=== PATIENT | female | born 1970 | race Caucasian/White ===

== ENCOUNTER 2017-01-31 21:37 | Emergency (ER) | payer OTHER ==
[2017-01-31] MEDS ORDERED: Diazepam TAB(*) 5 MG PO ONE ×2 (22:11→23:42)
[2017-01-31] MEDS ORDERED: Ketorolac INJ* 60 MG/2 ML VIAL IM ONE (22:11)
[2017-01-31] MEDS ORDERED: Ibuprofen TAB* 600 MG PO ONE (23:43)
[2017-01-31 23:57] VITALS: BP 113/72
--- NOTE | 2017-02-01 03:02 | ED ---
I, Oh,Soohefrain, scribed for Chadwick Zuniga MD on 01/31/17 at 2210 . Back Pain - HPI Summary HPI Summary: This 46 y/o female presents to ED for acute on chronic low back pain after moving laundry washer at 1300 PM. Pain radiates down to LLE leg. Weight bearing make the pain worse. APAP was taken at 1300 PM without much relief. Negative fever, chills, or neck pain. Positive nausea with pain. PMHx includes known sciatica. Negative hx of surgery. Pt reports that pt did get itchy with oxycodone and hydrocodone. Pt is currently on fluoxetine. - History of Current Complaint Chief Complaint: EDBackInjuryPain Stated Complaint: LOWER BACK PAIN Time Seen by Provider: 01/31/17 21:52 Hx Obtained From: Patient, Medical Records Onset/Duration: Sudden Onset, Still Present Onset/Duration: Started Hours Ago, Traumatic, Still Present Timing: Constant Back Pain Location: Is Discrete @ - low back pain, Radiates To - radiating down LLE Pain Intensity: 10 Pain Scale Used: 0-10 Numeric Character: Spasmodic Aggravating Symptom(s): Walking Alleviating Symptom(s): Rest Associated Signs And Symptoms: Positive: Pain with Weight Bearing - Allergies/Home Medications Allergies/Adverse Reactions: Allergies Allergy/AdvReac Type Severity Reaction Status Date / Time Bacitracin Allergy Intermediate Rash Verified 09/26/15 16:09 VAGINAL CREAM Allergy Severe Itching Uncoded 09/26/15 16:09 PMH/Surg Hx/FS Hx/Imm Hx Endocrine/Hematology History: Denies: Hx Diabetes, Hx Thyroid Disease Cardiovascular History: Denies: Hx Hypertension Respiratory History: Denies: Hx Asthma, Hx Chronic Obstructive Pulmonary Disease (COPD) GI History: Denies: Hx Ulcer History: Reports: Hx Kidney Infection Musculoskeletal History: Reports: Other Musculoskeletal History - sciatica Neurological History: Reports: Hx Migraine Psychiatric History: Reports: Hx Anxiety, Hx Depression - Surgical History Surgery Procedure, Year, and Place: hysterectomy. colposcopy - Immunization History Date of Tetanus Vaccine: Unk Date of Influenza Vaccine: None Infectious Disease History: Denies: Hx Hepatitis, Hx Human Immunodeficiency Virus (HIV), History Other Infectious Disease, Traveled Outside the [place] in Last 30 Days - Family History Known Family History: Positive: Hypertension - Social History Alcohol Use: None Substance Use Type: Reports: None Hx Tobacco Use: Yes Smoking Status (MU): Current Every Day Smoker Type: Cigarettes Amount Used/How Often: 1/2 PPD Length of Time of Smoking/Using Tobacco: 22 years Have You Smoked in the Last Year: Yes Review of Systems Negative: Fever Positive: Other - low back pain radiating down to LLE Neurological: Other - Negative neck pain All Other Systems Reviewed And Are Negative: Yes Physical Exam - Summary Physical Exam Summary: The patient is well-nourished in moderate distress. The skin is warm and dry and skin color reflects adequate perfusion. HEENT: The head is normocephalic and atraumatic. The pupils are equal and reactive. The conjunctivae are clear and without drainage. Nares are patent and without drainage. Mouth reveals moist mucous membranes and the throat is without erythema and exudate. The external ears are intact. The ear canals are patent and without drainage. The tympanic membranes are intact. Neck is supple with full range of motion and non-tender. There are no carotid bruits. There is no neck vein distension. Respiratory: Chest is non-tender. Lungs are clear to auscultation and breath sounds are symmetrical and equal. Cardiovascular: Hear is regular rate and rhythm. There is no murmur or rub auscultated. There is no peripheral edema and pulses are symmetrical and equal. Abdomen: The abdomen is soft and non-tender. There are normal bowel sounds heard in all four quadrants and there is no organomegaly palpated. Musculoskeletal: There is no back pain noted. Extremities are non-tender with full range of motion. There is good capillary refill. There is no peripheral edema or calf tenderness elicited. Muscle spasm at paravertebral region, going into her buttocks. Neurological: Patient is alert and oriented to person, place and time. The patient has symmetrical motor strength in BLE. Cranial nerves are grossly intact. Deep tendon reflexes are symmetrical and equal in all four extremities. Intact DTR at bilat patella. Psychiatric: The patient has an appropriate affect and does not exhibit any anxiety or depression. Triage Information Reviewed: Yes Vital Signs On Initial Exam: Initial Vitals Temp Pulse Resp BP Pulse Ox 98 F 91 20 116/68 98 01/31/17 21:44 01/31/17 21:44 01/31/17 21:44 01/31/17 21:44 01/31/17 21:44 Vital Signs Reviewed: Yes Diagnostics - Vital Signs Vital Signs Temp Pulse Resp BP Pulse Ox 01/31/17 21:44 98 F 91 20 116/68 98 - Laboratory Lab Statement: Any lab studies that have been ordered have been reviewed, and results considered in the medical decision making process. Back Pain Course/Dx - Course Assessment/Plan: This 46 y/o female presents to ED for acute on chronic back pain that occurred immediately after moving a laundry washer this afternoon. PMHx is significant for known sciatica and chronic back pain. Pt's allergic reaction to oxycodone and hydrocodone were reviewed with pt, and she was given toradol and diazepam to symptomatically treat her back pain. Pain improved with med, and she is discharged with work note and recommendation for outpatient f/u. - Diagnoses Differential Diagnosis/HQI/PQRI: Positive: Herniated Disc, Strain, Sprain, Other - sciatica, Provider Diagnoses: Back pain due to injury Discharge - Discharge Plan Condition: Stable Disposition: HOME Prescriptions: Diazepam TAB(*) [Valium TAB(*)] 5 mg PO Q6H PRN #20 tab MDD 4 PRN Reason: pain Ibuprofen TAB* [Motrin TAB* 600 MG] 600 mg PO Q6H PRN #30 tab PRN Reason: pain Patient Education Materials: Ibuprofen (By mouth), Diazepam (By mouth), Back Pain (ED) Forms: *Work Release Referrals: Micky El MD [Primary Care Provider] - 2 Days Additional Instructions: Please consider MRI and physical therapy if your back pain persists. The documentation as recorded by the Kaushik sanchez Soohyun accurately reflects the service I personally performed and the decisions made by , Chadwick Zuniga MD.
== END 2017-01-31 23:56 | disposition home or self-care (01) ==
LOC: ED 21:37
DX: M54.5 Low back pain (principal); Z87.828 Personal history of other (healed) physical injury and trauma
CPT/HCPCS: 96372; 99282; A9270-GY; J1885

== ENCOUNTER → 2017-02-01 13:32 | Emergency (ER) | payer OTHER ==
[~2017-02-01 13:32] MED LIST: Diazepam TAB(*) 5 MG PO ONE; traMADol TAB* 50 MG PO ONE
[2017-02-01 13:43] VITALS: BP 120/90
--- NOTE | 2017-02-01 14:42 | RAD ---
Indication: Left lower extremity pain. CT of the lumbar spine was obtained in the axial plane. Sagittal and coronal reconstructed images were obtained. At L5-S1 there is disc space narrowing. Minimal broad-based protrusion is noted. No central or foraminal stenosis is noted. At L1-L2, L2-L3, L3-L4 and L4-L5 no disc protrusion is noted. No fractures identified. IMPRESSION: Degenerative disc disease at L5-S1. No fracture of the lumbar spine is noted.
--- NOTE | 2017-02-01 16:11 | ED ---
Back Pain - HPI Summary HPI Summary: Patient presents with left sided back pain that began after pushing a heavy appliance yesterday. She has a history of back pain and didn't think it would hurt. Today though she has extreme pain that radiates down to the outside of her left foot. She saw her PCP who referred her to the ED for an MRI due to her pain. The patient is able to walk with pain, denies incontinence of urine or stool. She has tingling on the outside of the left foot without weakness. - History of Current Complaint Chief Complaint: EDBackInjuryPain Stated Complaint: BACK PAIN Time Seen by Provider: 02/01/17 13:57 Hx Obtained From: Patient, Family/8Th Grade Teacher Onset/Duration: Gradual Onset Onset/Duration: Atraumatic Timing: Constant Severity Initially: Moderate Severity Currently: Severe Pain Intensity: 6 Character: Sharp, Spasmodic, Stiffness Aggravating Symptom(s): Movement, Bending Alleviating Symptom(s): Nothing Associated Signs And Symptoms: Positive: Pain with Weight Bearing Related History: Previous Back Injury - Allergies/Home Medications Allergies/Adverse Reactions: Allergies Allergy/AdvReac Type Severity Reaction Status Date / Time Bacitracin Allergy Intermediate Rash Verified 09/26/15 16:09 VAGINAL CREAM Allergy Severe Itching Uncoded 09/26/15 16:09 PMH/Surg Hx/FS Hx/Imm Hx Endocrine/Hematology History: Denies: Hx Diabetes, Hx Thyroid Disease Cardiovascular History: Denies: Hx Hypertension Respiratory History: Denies: Hx Asthma, Hx Chronic Obstructive Pulmonary Disease (COPD) GI History: Denies: Hx Ulcer History: Reports: Hx Kidney Infection Musculoskeletal History: Reports: Hx Back Problems, Other Musculoskeletal History - sciatica Neurological History: Reports: Hx Migraine Psychiatric History: Reports: Hx Anxiety, Hx Depression - Surgical History Surgery Procedure, Year, and Place: hysterectomy. colposcopy - Immunization History Date of Tetanus Vaccine: Unk Date of Influenza Vaccine: None Infectious Disease History: No Infectious Disease History: Denies: Hx Hepatitis, Hx Human Immunodeficiency Virus (HIV), History Other Infectious Disease, Traveled Outside the [place] in Last 30 Days - Family History Known Family History: Positive: Hypertension - Social History Occupation: Employed Full-time Lives: With Family Alcohol Use: None Substance Use Type: Reports: None Hx Tobacco Use: Yes Smoking Status (MU): Current Every Day Smoker Type: Cigarettes Amount Used/How Often: 1/2 PPD Length of Time of Smoking/Using Tobacco: 22 years Have You Smoked in the Last Year: Yes Cessation Counseling: Patient Advised to Stop Review of Systems Positive: Myalgia Negative: Weakness, Paresthesia, Numbness All Other Systems Reviewed And Are Negative: Yes Physical Exam Triage Information Reviewed: Yes Vital Signs On Initial Exam: Initial Vitals Temp Pulse Resp BP Pulse Ox 98.3 F 94 20 120/90 99 02/01/17 13:40 02/01/17 13:40 02/01/17 13:40 02/01/17 13:40 02/01/17 13:40 Vital Signs Reviewed: Yes Appearance: Positive: Well-Appearing, Well-Nourished, Pain Distress Skin: Positive: Warm, Skin Color Reflects Adequate Perfusion, Dry, Soft Head/Face: Positive: Normal Head/Face Inspection Eyes: Positive: EOMI, [place], Conjunctiva Clear ENT: Positive: Hearing grossly normal Neck: Positive: Supple, Nontender Respiratory/Lung Sounds: Positive: Clear to Auscultation, Breath Sounds Present Cardiovascular: Positive: RRR Abdomen Description: Positive: Nontender, Soft Bowel Sounds: Positive: Present Musculoskeletal: Negative: Edema Left, Edema Right Neurological: Positive: Sensory/Motor Intact, Alert, Oriented to Person Place, Time, NV Bundle Intact Distally, Normal Gait Psychiatric: Positive: Affect/Mood Appropriate AVPU Assessment: Alert Diagnostics - Vital Signs Vital Signs Temp Pulse Resp BP Pulse Ox 02/01/17 14:06 19 02/01/17 13:43 97.1 F 91 20 120/90 100 02/01/17 13:40 98.3 F 94 20 120/90 99 - Laboratory Lab Statement: Any lab studies that have been ordered have been reviewed, and results considered in the medical decision making process. - CT No standard instances CT Interpretation: No Acute Changes CT Interpretation Completed By: Radiologist - Ultrasound No standard instances Ultrasound Interpretation: No Acute Changes Ultrasound Interpretation Completed By: Radiologist Re-Evaluation - Re-Evaluation First Eval Re-Evaluation Time: 17:00 Change: Improved - pain improved greatly but still mildly presents Back Pain Course/Dx - Diagnoses Differential Diagnosis/HQI/PQRI: Positive: Aneurysm, Arthritis, Cauda Equina Syndrome, Compressive Cord Syndrome, Herniated Disc, Strain, Sprain Provider Diagnoses: Back pain Discharge - Discharge Plan Condition: Stable Disposition: HOME Prescriptions: Hydrocodone-Acetaminophen [Delphia 5-325 mg] 1 tab PO QID PRN #12 tab MDD 4 PRN Reason: Pain Patient Education Materials: Back Pain (ED) Forms: *Work Release Referrals: Micky El MD [Primary Care Provider] - Additional Instructions: Please use the medication prescribed by Dr. Zuniga. Follow-up with your primary care provider if symptoms do not improve in the next 3-5 days. Rest your back and apply heat or ice as needed. Return to the emergency department if symptoms worsen.
--- NOTE | 2017-02-01 17:49 | RAD ---
HISTORY: Left groin pain COMPARISONS: None relevant TECHNIQUE: Multiple transverse and longitudinal ultrasound images were obtained of the left lower extremity from the level of the common femoral vein inferiorly through to the infrapopliteal veins using grayscale, color Doppler, and spectral Doppler imaging with and without compression and with augmentation. Comparison images were obtained of the contralateral common femoral vein. FINDINGS: VEINS: The venous system of the left lower extremity is compressible throughout its course, with normal flow on color Doppler imaging and normal response to augmentation on spectral Doppler imaging. SOFT TISSUES: Unremarkable. OTHER FINDINGS: There is a small complex cyst of the popliteal fossa consistent with a Slaughter's cyst measuring 1.9 x 0.8 x 1.2 cm. IMPRESSION: NO LEFT LOWER EXTREMITY DEEP VEIN THROMBOSIS SLAUGHTER'S CYST
== END | disposition home or self-care (01) ==
LOC: ED 13:32
DX: M54.9 Dorsalgia, unspecified (principal); R10.32 Left lower quadrant pain; M71.22 Synovial cyst of popliteal space [Baker], left knee; M51.37 Other intervertebral disc degeneration, lumbosacral region; G43.909 Migraine, unspecified, not intractable, without status migrainosus; F41.9 Anxiety disorder, unspecified; F32.9 Major depressive disorder, single episode, unspecified; Z90.710 Acquired absence of both cervix and uterus; F17.210 Nicotine dependence, cigarettes, uncomplicated
CPT/HCPCS: 72131; 99282; A9270-GY

== ENCOUNTER 2017-03-26 13:57 | Emergency (ER) | payer SELFPAY ==
--- NOTE | 2017-03-26 15:41 | RAD ---
Indication: Right foot injury after fall. 3 views of the right foot demonstrates nondisplaced fracture through the proximal second, third and fourth metatarsals. IMPRESSION: Fractures which are nondisplaced through the proximal second, third and fourth metatarsals.
--- NOTE | 2017-03-26 15:51 | UC ---
Lower Extremity/Ankle HPI - HPI Summary HPI Summary: TWISTED RIGHT ANKLE AND FOOT TODAY AT WORK WHEN SHE STOOD UP AND THEN TRIPPED OVER A BOX. PAIN AND BRUISING MOSTLY IN RIGHT FOREFOOT. UNABLE TO BEAR WEIGHT. NO PREVIOUS RIGHT FOOT/ANKLE INJURY. - History of Current Complaint Chief Complaint: UCLowerExtremity Stated Complaint: FOOT INJURY Time Seen by Provider: 03/26/17 15:13 Hx Obtained From: Patient, Family/Disk Sharpener - MOM Onset/Duration: Sudden Onset, Lasting Hours, Still Present Severity Initially: Moderate Severity Currently: Moderate Pain Intensity: 8 Pain Scale Used: 0-10 Numeric Aggravating Factor(s): Standing, Ambulation Alleviating Factor(s): Rest Able to Bear Weight: No - Allergies/Home Medications Allergies/Adverse Reactions: Allergies Allergy/AdvReac Type Severity Reaction Status Date / Time Bacitracin Allergy Intermediate Rash Verified 09/26/15 16:09 VAGINAL CREAM Allergy Severe Itching Uncoded 09/26/15 16:09 PMH/Surg Hx/FS Hx/Imm Hx Previously Healthy: Yes - Surgical History Surgical History: Yes Surgery Procedure, Year, and Place: hysterectomy. colposcopy - Family History Known Family History: Positive: Hypertension - Social History Alcohol Use: None Substance Use Type: None Smoking Status (MU): Current Every Day Smoker Type: Cigarettes Amount Used/How Often: 1/2 PPD Length of Time of Smoking/Using Tobacco: 22 years Have You Smoked in the Last Year: Yes - Immunization History Most Recent Influenza Vaccination: unknown Most Recent Tetanus Shot: within 5 years Most Recent Pneumonia Vaccination: never Review of Systems Constitutional: Negative Skin: Bruising Respiratory: Negative Cardiovascular: Negative Gastrointestinal: Negative Musculoskeletal: Arthralgia, Decreased ROM, Edema All Other Systems Reviewed And Are Negative: Yes Physical Exam Triage Information Reviewed: Yes Appearance: Well-Appearing, No Pain Distress, Well-Nourished Vital Signs: Initial Vital Signs Temp 98 F 03/26/17 14:05 Pulse 88 03/26/17 14:05 Resp 22 03/26/17 14:05 BP 144/84 03/26/17 14:05 Pulse Ox 100 03/26/17 14:05 Vital Signs Reviewed: Yes Eyes: Positive: Conjunctiva Clear ENT: Positive: Hearing grossly normal Neck: Positive: Supple Respiratory: Positive: No respiratory distress, No accessory muscle use Cardiovascular: Positive: Pulses Normal Abdomen Description: Positive: Soft Musculoskeletal: Positive: ROM Limited @ - RIGHT FOOT/ANKLE, Edema @ - SLIGHT EDEMA RIGHT FOOT, Other: - TTO RIGHT FOREFOOT OVER 2ND, 3RD, 4TH METATARSALS Neurological: Positive: Alert Psychological: Positive: Age Appropriate Behavior Skin: Positive: Other - BRUISING RIGHT FOREFOOT Diagnostics - Radiology RIGHT FOOT XRAY Xray Interpretation: Positive (See Comments) - Fractures which are nondisplaced through the proximal second, third and fourth metatarsals Radiology Interpretation Completed By: Radiologist Lower Extremity Course/Dx - Differential Dx/Diagnosis Provider Diagnoses: Non-displaced fractures through the proximal second, third and fourth. metatarsals - right foot. Discharge - Discharge Plan Condition: Stable Disposition: HOME Prescriptions: Acetaminop/Codeine 30 MG TAB* [Tylenol/Codeine 30 MG TAB*] 1 - 2 tab PO Q6H PRN #20 tab MDD 8 PRN Reason: Pain Patient Education Materials: Foot Fracture in Adults (ED) Forms: *Work Release Referrals: Micky El MD [Primary Care Provider] - If Needed Jhon Webster MD [Medical Doctor] - 3 Days Additional Instructions: YOU HAVE NON DISPLACED FRACTURES THROUGH THE 2ND, 3RD AND 4TH METATARSALS OF YOUR RIGHT FOOT. WEAR THE CAMBOOT AT ALL TIMES UNTIL SEEN BY ORTHO. NO WEIGHT BEARING. OKAY TO REMOVE TO BATHE. FOLLOW-UP WITH ORTHO NEXT WEEK. KEEP ELEVATED ABLE.
[2017-03-26 16:06] VITALS: BP 156/99
== END 2017-03-26 16:31 | disposition home or self-care (01) ==
LOC: UCEAST 13:57
DX: S92.324A Nondisplaced fracture of second metatarsal bone, right foot, initial encounter for closed fracture (principal); S92.334A Nondisplaced fracture of third metatarsal bone, right foot, initial encounter for closed fracture; S92.344A Nondisplaced fracture of fourth metatarsal bone, right foot, initial encounter for closed fracture; W01.0XXA Fall on same level from slipping, tripping and stumbling without subsequent striking against object, initial encounter; Y93.89 Activity, other specified; Y92.89 Other specified places as the place of occurrence of the external cause; Y99.0 Civilian activity done for income or pay; F17.210 Nicotine dependence, cigarettes, uncomplicated
CPT/HCPCS: 99211; G0463

== ENCOUNTER 2017-04-30 10:51 | Emergency (ER) | payer OTHER ==
[2017-04-30 11:01] VITALS: BP 121/92
--- NOTE | 2017-04-30 11:39 | UC ---
Abdominal Pain Female HPI - HPI Summary HPI Summary: has been feeling badly for one week nausea vomiting back pain and urinary incot. has bed subjectively febrile, - History of Current Complaint Chief Complaint: UCGeneralIllness Stated Complaint: FEVER HEADACHE Time Seen by Provider: 04/30/17 11:15 Hx Obtained From: Patient ?: No Onset/Duration: Gradual Onset, Lasting Weeks - 1 Timing: Constant Severity Initially: Mild Severity Currently: Moderate Pain Intensity: 9 Pain Scale Used: 0-10 Numeric Location: Other - lower back Radiates: No Character: Aching, Dull Aggravating Factor(s): Food Alleviating Factor(s): Nothing Associated Signs and Symptoms: Positive: Diaphoresis, Fever - subjective, Back Pain, Urinary Symptoms, Decreased Appetite, Nausea, Vomiting Allergies/Adverse Reactions: Allergies Allergy/AdvReac Type Severity Reaction Status Date / Time Bacitracin Allergy Intermediate Rash Verified 04/30/17 10:55 VAGINAL CREAM Allergy Severe Itching Uncoded 04/30/17 10:55 PMH/Surg Hx/FS Hx/Imm Hx Previously Healthy: No GI/ History: Other Other GI/ History: neurogentic blader Psychological History: Depression - Surgical History Surgical History: Yes Surgery Procedure, Year, and Place: hysterectomy. colposcopy - Family History Known Family History: Positive: Hypertension - Social History Occupation: Employed Full-time Lives: With Family Alcohol Use: None Substance Use Type: None Smoking Status (MU): Heavy Every Day Tobacco Smoker Type: Cigarettes Amount Used/How Often: 1/2 PPD Length of Time of Smoking/Using Tobacco: 22 years Have You Smoked in the Last Year: Yes Cessation Counseling: Counseled 3+Min - 10 Min - Immunization History Most Recent Influenza Vaccination: unknown Most Recent Tetanus Shot: within 5 years Most Recent Pneumonia Vaccination: never Review of Systems Constitutional: Negative Skin: Negative Eyes: Negative ENT: Negative Respiratory: Negative Cardiovascular: Negative Gastrointestinal: Abdominal Pain, Nausea Genitourinary: Negative, Frequency, Urgency Motor: Negative Neurovascular: Negative Musculoskeletal: Negative Neurological: Negative Psychological: Negative Is Patient Immunocompromised?: No All Other Systems Reviewed And Are Negative: Yes Physical Exam Triage Information Reviewed: Yes Appearance: Well-Nourished, Ill-Appearing, Pain Distress Vital Signs: Initial Vital Signs Temp 97.2 F 04/30/17 10:56 Pulse 69 04/30/17 10:56 Resp 18 04/30/17 10:56 BP 121/92 04/30/17 10:56 Pulse Ox 100 04/30/17 10:56 Vital Signs Reviewed: Yes Eye Exam: Normal Eyes: Positive: Conjunctiva Clear ENT Exam: Normal ENT: Positive: Normal ENT inspection, Hearing grossly normal, Pharynx normal, TMs normal. Negative: Nasal congestion, Nasal drainage, Trismus, Muffled/ hoarse voice Dental Exam: Normal Neck exam: Normal Neck: Positive: Supple, Nontender Respiratory Exam: Normal Respiratory: Positive: Chest non-tender, Lungs clear, Normal breath sounds, No respiratory distress, No accessory muscle use Cardiovascular Exam: Normal Cardiovascular: Positive: RRR, No Murmur, Pulses Normal, Brisk Capillary Refill Abdomen Description: Positive: No Organomegaly, Soft, CVA Tenderness (R), CVA Tenderness (L) Bowel Sounds: Positive: Present Musculoskeletal Exam: Normal Musculoskeletal: Positive: Strength Intact, ROM Intact, No Edema, Other: - right leg in cam boot limited evaluation Neurological Exam: Normal Neurological: Positive: Alert, Muscle Tone Normal Psychological Exam: Normal Skin Exam: Normal Diagnostics - Laboratory Diagnostic Studies Completed/Ordered: UA-trace blood, protien - Radiology No standard instances Xray Interpretation: No Acute Changes Radiology Interpretation Completed By: Radiologist Re-Evaluation - Re-Evaluation First Eval Change: Improved - feeling better after tylenol with codiene and zofran Abd Pain Female Course/Dx - Course Course Of Treatment: rest increase fluids, to ed should symptoms worsen or fail to improve, follow with pcp on Wednesday advance diet slowly - Differential Dx/Diagnosis Differential Diagnosis: Appendicitis, Bowel Obstruction, Constipation, Gall Bladder Disease, Pelvic Inflammatory Disease, Renal Colic, Urinary Tract Infection Provider Diagnoses: Acute abdomen pain Discharge - Discharge Plan Condition: Stable Disposition: HOME Prescriptions: Acetaminophen W/ Codeine [Acetaminophen/Codeine #3 300-30 mg] 1 tab PO Q4H PRN # 16 tab MDD 6 PRN Reason: Pain Acetaminophen W/ Codeine [Acetaminophen/Codeine Demarcus 300-30 mg] 1 tab PO Q4H PRN #15 tab MDD 6 PRN Reason: Pain Ondansetron ODT TAB* [Zofran 4 MG Odt TAB*] 4 mg PO Q6H PRN #10 tab.odt PRN Reason: nausea Patient Education Materials: Hematuria (ED), Acute Abdominal Pain (ED) Referrals: Micky El MD [Primary Care Provider] - 3 Days
[2017-04-30] MEDS ORDERED: Acetaminop/Codeine 30 MG TAB* 1 TAB (300 MG/30 MG) PO ONE (11:41)
[2017-04-30] MEDS ORDERED: Ondansetron ODT TAB* 4 MG PO ONE (11:41)
--- NOTE | 2017-04-30 12:24 | RAD ---
INDICATION: Hematuria. COMPARISON: Comparison is made with a prior CT of the abdomen and pelvis from July 23, 2015. TECHNIQUE: A CT scan of the abdomen and pelvis was performed without intravenous or oral contrast. Contiguous axial sections were obtained from the lung bases through the symphysis pubis. Images were reconstructed in the coronal and sagittal planes. FINDINGS: The lung bases are clear. No pleural effusion is present. The liver and spleen are within normal limits in size without significant focal abnormality on this noncontrast study. No calcified gallstones are seen. The pancreas appears to be within normal limits in size. The adrenal glands and kidneys are normal in size. No renal calculi or hydronephrosis is seen. No ureteral or bladder calculi are seen. The aorta is normal in caliber with mild calcific plaque present. No significant enlarged retroperitoneal lymph nodes are seen. The stomach is mildly distended with fluid. The small bowel and colon appear nondistended. The appendix is within normal limits. There is mild sigmoid diverticulosis. There is no evidence for diverticulitis or colitis. No free intraperitoneal air or fluid is seen. No significant focal osseous abnormality is seen. IMPRESSION: NO EVIDENCE FOR RENAL CALCULI OR HYDRONEPHROSIS. IF THE PATIENT'S HEMATURIA PERSISTS CONSIDER AN OUTPATIENT CT UROGRAM FOR FURTHER EVALUATION.
== END 2017-04-30 13:15 | disposition home or self-care (01) ==
LOC: UCEAST 10:51
DX: R10.9 Unspecified abdominal pain (principal); Z71.6 Tobacco abuse counseling; F17.210 Nicotine dependence, cigarettes, uncomplicated
CPT/HCPCS: 74176; 81003; 99212; A9270-GY; G0463

== ENCOUNTER 2018-04-21 13:17 | Emergency (ER) | payer OTHER ==
[2018-04-21 14:03] VITALS: BP 141/93
--- NOTE | 2018-04-21 14:10 | UC ---
Ear Complaint HPI - HPI Summary HPI Summary: Patient is a 47 y/o female who presents to [facility] c/o facial numbness. She states she woke up this morning with a pressure in her right ear, and now she has numbness across the right side of her face and mild neck pain. Patient points along the right sided buccal branch of the facial nerve. She describes the sensation as if she was given Novacaine. Patient denies any tooth pain, difficulty with speech, facial weakness, or vision changes. Patient has a runny nose due to seasonal allergies, with clear nasal discharge. - History of Current Complaint Stated Complaint: EAR PAIN SINUS ISSUE Time Seen by Provider: 04/21/18 13:51 Hx Obtained From: Patient Onset/Duration: Gradual Onset, Lasting Hours - This morning, Still Present Severity Currently: Mild Pain Intensity: 2 Pain Scale Used: 0-10 Numeric Aggravating Factors: Nothing Alleviating Factors: Nothing Related History: Seasonal Allergies - Allergies/Home Medications Allergies/Adverse Reactions: Allergies Allergy/AdvReac Type Severity Reaction Status Date / Time bacitracin Allergy Rash Verified 04/21/18 13:51 VAGINAL CREAM Allergy Severe Itching Uncoded 04/21/18 13:51 PMH/Surg Hx/FS Hx/Imm Hx Endocrine History: Other Other Endocrine History: NEGATIVE: DM Cardiovascular History: Other Other Cardiovascular History: NEGATIVE: HTN Respiratory History: Other Other Respiratory History: NEGATIVE: asthma Psychological History: Depression - Surgical History Surgical History: Yes Surgery Procedure, Year, and Place: hysterectomy. colposcopy - Family History Known Family History: Positive: Hypertension, Other - CVA - Social History Alcohol Use: None Substance Use Type: None Smoking Status (MU): Heavy Every Day Tobacco Smoker Type: Cigarettes Amount Used/How Often: 4 cig/day Length of Time of Smoking/Using Tobacco: 22 years Have You Smoked in the Last Year: Yes - Immunization History Most Recent Influenza Vaccination: unknown Most Recent Tetanus Shot: within 5 years Most Recent Pneumonia Vaccination: never Review of Systems Eyes: Negative - Vision changes ENT: Negative - Dental pain, Ear Ache - Right ear pressure, Nasal Discharge - Allergies Neurovascular: Negative - Decreased sensation Neurological: Negative - Speech changes, facial weakness, Numbness - Right- sided buccal branch of face All Other Systems Reviewed And Are Negative: Yes Physical Exam - Summary Physical Exam Summary: General: well-appearing, no pain distress Skin: warm, color reflects adequate perfusion, dry Head: normal Eyes: EOMI, [place] ENT: normal Neck: supple, nontender Respiratory: CTA, breath sounds present Cardiovascular: RRR Abdomen: soft, nontender Bowel: present Musculoskeletal: normal, strength/ROM intact Neurological: sensory/motor intact, A&O x3 Psychological: affect/mood appropriate GCS: 15 Triage Information Reviewed: Yes Vital Signs: Initial Vital Signs Temp 97.6 F 04/21/18 13:52 Pulse 60 04/21/18 13:52 Resp 16 04/21/18 13:52 BP 141/93 04/21/18 13:52 Pulse Ox 100 04/21/18 13:52 Vital Signs Reviewed: Yes Diagnostics - Radiology No standard instances Xray Interpretation: No Acute Changes - Brain CT: No acute intracranial pathology. physician reviewed radiology report. mAXILLOFACIAL ct NEGATIVE Radiology Interpretation Completed By: Radiologist [employer] Institutes Of Health - NIH Scale Level of Consciousness: Alert/Keenly Responsive Ask Patient the Month and His/Her Age: Both Correct Ask Pt to Open/Close Eyes and Communications Tech/Release Non-Paretic Hand: Both Correctly Best Gaze (Only Horizontal Eye Movement): Normal Visual Field Testing: No Visual Loss Facial Paresis-Pt to Smile & Close Eyes or Grimace Symmetry: Normal/Symmetrical Motor Function - Right Arm: No Drift-Holds 10 Seconds Motor Function - Left Arm: No Drift-Holds 10 Seconds Motor Function - Right Leg: No Drift-Holds 10 Seconds Motor Function - Left Leg: No Drift-Holds 10 Seconds Limb Ataxia-Must be out of Proportion to Weakness Present: Absent Sensory (Use Pinprick to Test Arms/Legs/Trunk/Face): Normal Best Language (Describe Picture, Name Items): No Aphasia Dysarthria (Read Several Words): Normal Extinction and Inattention: No Abnormality Total Score: 0 Ear Complaint Course/Dx - Course Course Of Treatment: DISCUSSED CT RESULTS WITH THE PATIENT. NO MOTOR DEFICIT. NO VISION/SPEECH CHANGE. NUMBNESS IS PERIFERAL; IT IS LIMITED TO THE RIGHT FACIAL NERVE, BUCCAL BRANCH. WITH THE EAR PAIN, WILL TREAT FOR POSSIBLE BACTERIAL INFECTIOUS CAUSE. DISCUSSED WITH PATIENT THE POSSIBILITY OF SHINGLE, KEVIN'S PALSY AND STROKE. SHE KNOWS TO GET RE EVALUATED RIGHT AWAY FOR ANY WEAKNESS, RASH, SPREAD OF NUMBNESS OR ANY OTHER CHANGES. F/U PMD; ED IF WORSE. - Differential Dx/Diagnosis Provider Diagnoses: RIGHT BUCCAL NERVE PARESTHESIA. RIGHT EAR PAIN Discharge - Sign-Out/Discharge Documenting (check all that apply): Patient Departure All imaging exams completed and their final reports reviewed: Yes - Discharge Plan Condition: Stable Disposition: HOME Prescriptions: Amoxicillin/Clavulanate TAB* [Augmentin TAB 875*] 875 mg PO BID #20 tab Neomyc/Polym/HC 1% OTIC SUSP* [Cortisporin Otic Susp 1%*] 4 drop RIGHT EAR QID # 1 btl Patient Education Materials: Paresthesia (ED), Earache (ED) Forms: *Work Release Referrals: Micky El MD [Primary Care Provider] - Additional Instructions: FOLLOW UP WITH YOUR DOCTOR. GO TO THE EMERGENCY DEPARTMENT FOR ANY WORSENING OF YOUR CONDITION; FACIAL OR ARM WEAKNESS, DIFFICULTY WITH VISION OR SPEECH OR QUESTIONS OR CONCERNS. - Billing Disposition and Condition Condition: STABLE Disposition: Home - Attestation Statements Document Initiated by Scribe: Yes Documenting Scribe: Laura Zapata Provider For Whom Scribe is Documenting (Include Credential): Donn Beltran MD Scribe Attestation: Laura Waterman scribed for Donn Beltran MD on 04/21/18 at 1557. Scribe Documentation Reviewed: Yes Provider Attestation: The documentation as recorded by the Laura sanchez accurately reflects the service I personally performed and the decisions made by Donn ashton MD
--- NOTE | 2018-04-21 14:23 | RAD ---
INDICATION: Right facial numbness COMPARISON: None TECHNIQUE: Noncontrast axial source images were acquired from the skull base to the vertex. FINDINGS: Ventricles/sulci: The ventricles and cisterns are normal in size and configuration for age. Brain parenchyma: There is no focal parenchymal finding, evidence of intracranial mass, or intracranial mass effect. Intracranial hemorrhage:None. Extra-axial spaces: There are no abnormal extra axial fluid collections or evidence of extra-axial mass. Calvarium: There is no calvarial fracture or other calvarial abnormality. Scalp: There is no evidence of scalp or extracalvarial soft tissue abnormality. Paranasal sinuses/mastoid: The paranasal sinuses and mastoid air cells are clear. Other: None. IMPRESSION: NO ACUTE INTRACRANIAL FINDINGS.
--- NOTE | 2018-04-21 14:34 | RAD ---
INDICATION: RIGHT facial numbness. Buccal branch nerve distribution. COMPARISON: No relevant prior exams available on the [facility] PACS for comparison. TECHNIQUE: Multidetector CT base of the skull through mandible without contrast. Multiplanar reformation. REPORT: Symmetric unremarkable appearance of the submandibular and parotid glands. Negative for lymphadenopathy based on short axis size criteria. No soft tissue plane inflammatory change or focal lesion evident. Unremarkable orbital contents. The orbital and maxillary sinus margins, zygomatic arches, lamina papyracea, base of the maxilla, pterygoid plates, and nasal bones are intact. The mandible is intact. Normal temporal mandibular joint alignment. No focal osseous lesions evident. Symmetric appearance of the cerebellopontine angles and internal auditory canals. IMPRESSION: #. Negative unenhanced maxillofacial CT.
== END 2018-04-21 15:15 | disposition home or self-care (01) ==
LOC: UCEAST 13:17
DX: R20.2 Paresthesia of skin (principal); H92.01 Otalgia, right ear; F17.210 Nicotine dependence, cigarettes, uncomplicated; Z88.8 Allergy status to other drugs, medicaments and biological substances; Z88.1 Allergy status to other antibiotic agents
CPT/HCPCS: 70450; 70486; 99212; G0463